=== PATIENT | male | born 1980 | race Caucasian/White ===

== ENCOUNTER 2017-06-07 21:58 | Emergency (ER) | payer OTHER ==
[~2017-06-07] VITALS: Ht 167.6 cm; Wt 95.7 kg
[~2017-06-07 21:58] MED LIST: HIGH CHOLESTEROL MED PO; LISI10TA11 PO; METF500T PO
--- NOTE | 2017-06-07 22:08 | NUR ---
PT TAKEN TO BED 10
[2017-06-07 22:19] VITALS: BP 170/111
--- NOTE | 2017-06-07 22:25 | NUR ---
PT IS 37YEARS OLD MALE CAME IN WIHT CHIEF COMPLAIN OF CHEST PAIN X 2 MONTH, PT DENIES ANY RADIATION OF PAIN, SHARP PAIN 7/10. NO S/S OF DISTRESS NOTED. RESPIRATION EVEN AND UNLABORED. PT AA0 X4, ON ROOM AIR. PT STATED, PT HAS HYPERLIPIDEMIA, HTN, DM. PT STATED NO KNOWN ALLERGY. MD AWARE AND CONTINUE TO MONITOR.
[2017-06-07] MEDS ORDERED: METOPROLOL 50 MG TAB PO ONE (22:30)
[2017-06-07] MEDS ORDERED: NITROGLYCERIN 2% 1 GM PKT TP ONE (22:30)
[2017-06-07] MEDS ORDERED: NACL 0.9% 1,000 ML IV ONE (22:30)
[2017-06-07] MEDS ORDERED: ASPIRIN 81 MG TAB.CHEW PO ONE (22:30)
--- NOTE | 2017-06-07 22:40 | NUR ---
Dr. Moscoso evaluating patient.
[2017-06-07 23:34] LABS: BASOPHILS # (AUTO) 0.3 K/uL (0.00-0.22); BASOPHILS % (AUTO) 3.3 % (0.0-2.0); EOSINOPHILS # (AUTO) 0.2 K/uL (0-0.4); HEMATOCRIT 45.6 % (36-52); LYMPHOCYTES # (AUTO) 2.6 K/uL (2.0-11.5); LYMPHOCYTES % (AUTO) 31.8 % (20.5-51.1); MEAN CORPUSCULAR HEMOGLOBIN 32 pg (27-31); MEAN CORPUSCULAR HGB CONC 35 g/dL (33-37); MEAN CORPUSCULAR VOLUME 91 fL (80-94); MONOCYTES # (AUTO) 0.5 K/uL (0.8-1.0); MONOCYTES % (AUTO) 6.2 % (1.7-9.3); NEUTROPHILS # (AUTO) 4.5 K/uL (1.8-7.7); NEUTROPHILS % (AUTO) 56.7 % (42.2-75.2); PLATELET COUNT (AUTO) 252 K/uL (140-450); RED BLOOD CELL COUNT(AUTO) 5.01 MIL/uL (4.20-6.10); RED CELL DISTRIBUTION WIDTH 11.2 % (11.6-13.7); WHITE BLOOD COUNT (AUTO) 8.1 K/uL (4.8-10.8)
[2017-06-07 23:40] LABS: ALBUMIN 3.8 g/dL (3.4-5.0); ANION GAP 19.5 (8-16); CARBON DIOXIDE 22.8 mmol/L (21-32); CREATININE 0.7 mg/dL (0.7-1.3); POTASSIUM 4.3 mmol/L (3.5-5.1); TOTAL BILIRUBIN 0.7 mg/dL (0.0-1.0)
[2017-06-07 23:54] LABS: PROTHROMBIN TIME 10.1 secs (10.8-13.4)
--- NOTE | 2017-06-08 00:50 | NUR ---
Patient discharged with v/s stable. Written and verbal after care instructions given and explained. Patient alert, oriented and verbalized understanding of instructions. Ambulatory with steady gait. All questions addressed prior to discharge. ID band removed. Patient advised to follow up with PMD. Rx of ASPIRIN 81MG given. Patient educated on indication of medication including possible reaction and side effects. Opportunity to ask questions provided and answered.
[2017-06-08 01:00] VITALS: BP 114/63
== END 2017-06-08 00:50 | disposition home or self-care (01) ==
LOC: MED 21:58
DX: S29.011A Strain of muscle and tendon of front wall of thorax, initial encounter (principal); E11.9 Type 2 diabetes mellitus without complications; I10 Essential (primary) hypertension; Z79.84 Long term (current) use of oral hypoglycemic drugs; X58.XXXA Exposure to other specified factors, initial encounter; Y93.89 Activity, other specified; Y92.89 Other specified places as the place of occurrence of the external cause; Y99.8 Other external cause status
CPT/HCPCS: 36415; 71045; 80053; 84484; 85025; 85610; 85730; 93005; 96360; 99285; J7030; Q0092

== ENCOUNTER 2018-09-18 21:02 | Emergency (ER) | payer OTHER ==
[~2018-09-18] VITALS: Ht 167.6 cm; Wt 95.3 kg
[2018-09-18 21:08] VITALS: BP 152/83
--- NOTE | 2018-09-18 21:08 | NUR ---
PT TAKEN TO BED 6
--- NOTE | 2018-09-18 21:28 | NUR ---
PT TO ED WITH C/O ELEVATED BP LASTING FOR "MONTHS, PER PT. PT DENIES HEADACHE, BLURRY VISION, CP, PALPATIONS. PT DENIES ANY PAIN AT THIS TIME. PER PT "THE PROBLEM IS I TAKE ALL MY MEDICINES WITH 6 OR 7 24OZ OF BEER." PT PLACED INTO BED, PENDING MD WANG.
--- NOTE | 2018-09-18 21:37 | NUR ---
Dr. Britton evaluating patient at bedside.
[2018-09-18 22:24] LABS: BASOPHILS # (AUTO) 0.1 K/uL (0.00-0.22); BASOPHILS % (AUTO) 1.7 % (0.0-2.0); EOSINOPHILS # (AUTO) 0.1 K/uL (0-0.4); EOSINOPHILS % (AUTO) 1.2 % (0.0-4.0); HEMATOCRIT 43.2 % (36-52); HEMOGLOBIN 15.3 g/dL (12.0-18.0); LYMPHOCYTES # (AUTO) 1.6 K/uL (2.0-11.5); LYMPHOCYTES % (AUTO) 27.6 % (20.5-51.1); MEAN CORPUSCULAR HEMOGLOBIN 33 pg (27-31); MEAN CORPUSCULAR HGB CONC 36 g/dL (33-37); MEAN CORPUSCULAR VOLUME 92.3 fL (80-94); MONOCYTES # (AUTO) 0.4 K/uL (0.8-1.0); MONOCYTES % (AUTO) 7.8 % (1.7-9.3); NEUTROPHILS # (AUTO) 3.5 K/uL (1.8-7.7); NEUTROPHILS % (AUTO) 61.7 % (42.2-75.2); PLATELET COUNT (AUTO) 210 K/uL (140-450); RED BLOOD CELL COUNT(AUTO) 4.69 MIL/uL (4.20-6.10); RED CELL DISTRIBUTION WIDTH 12.4 % (11.6-13.7); WHITE BLOOD COUNT (AUTO) 5.7 K/uL (4.8-10.8)
[2018-09-18 22:42] LABS: ALBUMIN 3.6 g/dL (3.4-5.0); ANION GAP 10.7 (8-16); CREATININE 0.6 mg/dL (0.7-1.3); POTASSIUM 3.7 mmol/L (3.5-5.1); TOTAL BILIRUBIN 0.5 mg/dL (0.0-1.0)
--- NOTE | 2018-09-18 23:14 | NUR ---
PT MOVED TO ED 07
[2018-09-18 23:24] VITALS: BP 147/76
--- NOTE | 2018-09-18 23:24 | NUR ---
Patient discharged with v/s stable. Written and verbal after care instructions given and explained. Patient verbalized understanding. Ambulatory with steady gait. All questions addressed prior to discharge. Advised to follow up with PMD.
== END 2018-09-18 23:24 | disposition home or self-care (01) ==
LOC: MED 21:02
DX: I10 Essential (primary) hypertension (principal); F41.9 Anxiety disorder, unspecified; E11.9 Type 2 diabetes mellitus without complications; Z79.84 Long term (current) use of oral hypoglycemic drugs; Z79.899 Other long term (current) drug therapy
CPT/HCPCS: 36415; 71045; 80053; 82550; 82553; 83690; 84484; 85025; 93005; 99284; G0482

== ENCOUNTER 2022-08-17 10:14 | Emergency (ER) | payer BC, OTHER ==
[~2022-08-17] VITALS: Ht 167.6 cm; Wt 84.8 kg
[~2022-08-17 10:14] MED LIST changes: +LISI-486 PO; -LISI10TA11 PO; +METF-346 PO; -METF500T PO
[2022-08-17 10:38] VITALS: BP 204/134
--- NOTE | 2022-08-17 10:44 | NUR ---
PT AMBULATED TO BED 12
--- NOTE | 2022-08-17 10:45 | NUR ---
MD JOHNSON AT BEDSIDE FOR EVALUATION
--- NOTE | 2022-08-17 10:46 | NUR ---
The patient's care was reviewed and supervised by TANIKA DAVIS RN.
--- NOTE | 2022-08-17 10:51 | NUR ---
xray at bedside
--- NOTE | 2022-08-17 11:10 | NUR ---
42YO MALE PT C/O L HAND PAIN S/P MECH FALL X3DAYS. PAIN AT MOST ON MOVEMENT. HAND PRESENTS W/ MILD SWELLING. ABRASION NOTED ON L THUMB. HAND W/O VISIBLE DEFORMITY. DENIES NUMBING OR LOSS OF SENSATION. PT AAOX4, HOB POSITIONED PER COMFORT. HX: HTN, DM - NON COMPLIANT NKA
--- NOTE | 2022-08-17 12:40 | NUR ---
1235 PT LEFT HAND PLACED IN FIBERGLASS THUMB SPICA SPLINT. SPLINT WAS THEN DRESSED W/ JERROD WRAP X2. +CMS
--- NOTE | 2022-08-17 13:34 | NUR ---
PATIENT BP 183/115 AWARE. STATES OK TO DC
--- NOTE | 2022-08-17 13:35 | NUR ---
SLING PLACED TO PT LEFT ARM TO MAINTAIN POSITIONING PER MD
[2022-08-17 13:36] VITALS: BP 183/115
== END 2022-08-17 13:36 | disposition home or self-care (01) ==
LOC: MED 10:14
DX: S63.112A Subluxation of metacarpophalangeal joint of left thumb, initial encounter (principal); S53.32XA Traumatic rupture of left ulnar collateral ligament, initial encounter; E11.9 Type 2 diabetes mellitus without complications; I10 Essential (primary) hypertension; Z79.4 Long term (current) use of insulin; Z79.899 Other long term (current) drug therapy; W01.0XXA Fall on same level from slipping, tripping and stumbling without subsequent striking against object, initial encounter; Y93.89 Activity, other specified; Y92.89 Other specified places as the place of occurrence of the external cause; Y99.8 Other external cause status
CPT/HCPCS: 26700; 73130; 99284; Q0092